=== PATIENT | female | born 1955 | race Caucasian/White ===

== ENCOUNTER 2016-10-18 10:56 | Emergency (ER) | payer BC ==
[2016-10-18 10:58] VITALS: BP 150/90; PULSE 94; RESP 20; O2SAT 98
[2016-10-18] MEDS ORDERED: GABA100C4 PO (11:34)
[2016-10-18] MEDS ORDERED: CYMB30CA PO (11:34)
[2016-10-18] MEDS ORDERED: CYCL1TAB29 PO (11:34)
--- NOTE | 2016-10-18 12:29 | RADRPT ---
EXAM DATE/TIME: 10/18/2016 12:20 [place] COMPARISON: No previous studies available for comparison. INDICATIONS : Right side posterior pelvic pain, fell MEDICAL HISTORY : None. SURGICAL HISTORY : None. ENCOUNTER: Initial ACUITY: 2 days PAIN SCORE: 8/10 LOCATION: Right Pelvis FINDINGS: AP view of the pelvis demonstrates no fracture or dislocation. Mineralization is normal. There is mil d osteoarthritis of the hip joints bilaterally with small osteophytes. No sacroiliac joint abnormalit y is seen. Soft tissues demonstrate no acute finding. CONCLUSION: No acute pelvis abnormality is identified. There is mild osteoarthritis of the hip joints. Monty Cullen MD on October 18, 2016 at 12:25 Board Certified Radiologist. This report was verified electronically.
--- NOTE | 2016-10-18 12:51 | PD ---
HPI Chief Complaint: Fall Time Seen by Provider: 11:29 Travel History International Travel<30 days: No Contact w/Intl Traveler<30days: No Traveled to known affect area: No History of Present Illness HPI 60-year-old female comes to the ER after falling down a few stairs. She is disabled. While walking her dogs she slipped and landed onto her right back and right gluteus distribution causing pain. Bruising today was such that family became worried and encouraged her to come to the ER for evaluation. No hematuria. Pain is worse with palpation. PFSH Past Medical History Diabetes: No Medical other: Yes (CHRONIC PAIN) Tetanus Vaccination: > 5 Years Influenza Vaccination: No Ovarian Cysts: Yes Tubal Ligation: Yes Past Surgical History Section: Yes Hysterectomy: Yes (PARTIAL) Social History Alcohol Use: No Tobacco Use: No Substance Use: No Allergies-Medications (Allergen,Severity, Reaction): Coded Allergies: Percocet (Verified Allergy, Intermediate, HIVES, 10/18/16) Reported Meds & Prescriptions Reported Meds & Active Scripts Active Reported Flexeril (Cyclobenzaprine HCl) 10 Mg Tab 10 Mg PO HS Cymbalta DR (Duloxetine HCl) 30 Mg Capdr 30 Mg PO DAILY Gabapentin 100 Mg Cap 100 Mg PO BID Review of Systems Except as stated in HPI: all other systems reviewed are Neg Physical Exam Narrative GENERAL: 60-year-old female well-nourished well-developed no acute distress SKIN: Focused skin assessment warm/dry. Minimal ecchymosis along the right flank and right lower back and right buttocks. No hematoma. Appropriate tenderness. HEAD: Atraumatic. Normocephalic. EYES: Pupils equal and round. No scleral icterus. No injection or drainage. ENT: No nasal bleeding or discharge. Mucous membranes pink and moist. NECK: Trachea midline. No JVD. CARDIOVASCULAR: Regular rate and rhythm. No murmur appreciated. RESPIRATORY: No accessory muscle use. Clear to auscultation. Breath sounds equal bilaterally. GASTROINTESTINAL: Abdomen soft, non-tender, nondistended. Hepatic and splenic margins not palpable. MUSCULOSKELETAL: No obvious deformities. No clubbing. No cyanosis. No edema. Patient is ambulatory. NEUROLOGICAL: Awake and alert. No obvious cranial nerve deficits. Motor grossly within normal limits. Normal speech. PSYCHIATRIC: Appropriate mood and affect; insight and judgment normal. Data Data Last Documented VS Vital Signs Date Time Temp Pulse Resp B/P Pulse Ox O2 Delivery O2 Flow Rate FiO2 10/18/16 11:24 90 20 99 Room Air 10/18/16 10:58 150/90 Temp 97.9 per RN, VS reviewed Orders Pelvis, Ap Only (Routine) (10/18/16 11:44) MDM Medical Decision Making Medical Screen Exam Complete: Yes Emergency Medical Condition: Yes Medical Record Reviewed: Yes Differential Diagnosis Contusion, ecchymosis, pubic ramus fracture Narrative Course Last 24 hours Impressions Pelvis X-Ray 10/18/16 1144 Signed Impressions: Service Date/Time: September 12:20 - CONCLUSION: No acute pelvis abnormality is identified. There is mild osteoarthritis of the hip joints. Monty Cullen MD The patient is resting comfortably and feels better, is alert and in no distress. The patients results and examination findings were discussed. The repeat examination is unremarkable and benign. The history, exam, diagnostic testing, and current condition do not suggest any significant pathology to warrant further testing, continued ED treatment, admission, or surgical evaluation at this point. The vital signs have been stable. The patient does not have uncontrollable pain, intractable vomiting, or other significant symptoms. The patient's condition is stable and appropriate for discharge. The patient will pursue further outpatient evaluation with a primary care physician or other designated or consulting physician as indicated in the discharge instructions. The patient expressed understanding and was agreeable with this plan. Diagnosis Primary Impression: Patrick Kent MD October 18, 2016 12:51
[2016-10-18 12:56] VITALS: BP 145/83; PULSE 88; RESP 20; TEMP 97.9; O2SAT 99
== END 2016-10-18 13:52 | disposition home or self-care (01) ==
LOC: NEPD 10:56
DX: S30.0XXA Contusion of lower back and pelvis, initial encounter (principal); S30.1XXA Contusion of abdominal wall, initial encounter; W10.9XXA Fall (on) (from) unspecified stairs and steps, initial encounter; Y93.01 Activity, walking, marching and hiking; Y92.008 Other place in unspecified non-institutional (private) residence as the place of occurrence of the external cause
CPT/HCPCS: 72170; 99283